=== PATIENT | female | born 1985 | race African-American/Black ===

== ENCOUNTER 2017-01-26 08:21 | Emergency (ER) | payer OTHER ==
[~2017-01-26] VITALS: Ht 182.9 cm; Wt 140.2 kg
[~2017-01-26 08:21] MED LIST: LISI-515 PO
[2017-01-26 08:27] VITALS: BP 207/134; PULSE 84; RESP 16; TEMP 98.3; O2SAT 100
[2017-01-26] MEDS ORDERED: LISI40TA PO (08:35)
[2017-01-26] MEDS ORDERED: amLODIPine BESYLATE 5 MG TAB PO ONE (09:00)
[2017-01-26] MEDS ORDERED: KETOROLAC TROMETHAMINE 60 MG/2 ML (IM) VIAL IM ONE (09:00)
--- NOTE | 2017-01-26 09:22 | PD ---
HPI Chief Complaint: Musculoskeletal Complaint Time Seen by Provider: 08:43 Travel History International Travel<30 days: No Contact w/Intl Traveler<30days: No Traveled to known affect area: No History of Present Illness HPI This is a 31-year-old female who has a history of hypertension who presents to the emergency department with 4 days of pain in her left shoulder, constant, worse with movement, improved with rest. She denies any numbness or weakness. She says over the weekend she was seen on monkey bars and thinks she may pulled something and then subsequently helped her sister paint her house. Following that her shoulder was very painful and she's been having difficulty moving it. She has a history of high blood pressure and takes lisinopril 40 mg every day. She says she took it this morning but she thinks that she probably needs to go back to her doctor because her blood pressures been [id number]. She denies any chest pain or difficulty breathing. PFSH Past Medical History Hypertension: Yes Influenza Vaccination: No ?: Not LMP: 2 WEEKS Past Surgical History Appendectomy: Yes Social History Alcohol Use: Yes (COUPLE TIMES PER MONTH) Tobacco Use: No Substance Use: No Allergies-Medications (Allergen,Severity, Reaction): Coded Allergies: Clonidine (Verified Allergy, Severe, Hives and itchiness, 01/26/17) Reported Meds & Prescriptions Reported Meds & Active Scripts Active Reported Lisinopril 40 Mg Tab 40 Mg PO DAILY Review of Systems Except as stated in HPI: all other systems reviewed are Neg Physical Exam Narrative GENERAL:Well appearing, no acute distress SKIN: Focused skin assessment warm and dry. HEAD: Atraumatic. Normocephalic. EYES: Pupils equal and round. No injection or drainage. ENT: Moist mucous membranes NECK: Trachea midline. CARDIOVASCULAR: Regular rate and rhythm. No murmur appreciated. 2+ left radial pulse with normal capillary refill. RESPIRATORY: Clear to auscultation. Breath sounds equal bilaterally. GASTROINTESTINAL: Abdomen soft, non-tender. MUSCULOSKELETAL: Pain with empty can test and external rotation. Tender to palpation along the anterior aspect of the left shoulder. NEUROLOGICAL: Awake and alert. No obvious cranial nerve deficits. Moving all extremities. PSYCHIATRIC: Appropriate mood and affect; insight and judgment normal. Data Data Last Documented VS Vital Signs Date Time Temp Pulse Resp B/P Pulse Ox O2 Delivery O2 Flow Rate FiO2 01/26/17 08:27 98.3 84 16 207/134 100 Orders Ketorolac Inj (Toradol Inj) (01/26/17 09:00) Shoulder, Complete (>2vws) (01/26/17 ) Amlodipine (Norvasc) (01/26/17 09:00) MDM Medical Decision Making Medical Screen Exam Complete: Yes Emergency Medical Condition: Yes Interpretation(s) afebrile, marked hypertension shoulder xray: no acute fracture or dislocation Differential Diagnosis Rotator cuff sprain, shoulder dislocation, septic arthritis, bursitis Narrative Course This is a 31-year-old female who presents to the emergency department with left shoulder pain following an injury on the monkey bars. She has a normal neurovascular exam. She is quite hypertensive but she says this is chronic for her and she needs to follow up with her primary care physician for medication titration. X-ray of the shoulder was reassuring. She was given a dose of IM Toradol. She was advised to continue anti-inflammatories and follow up with orthopedics as needed for her shoulder. I suspect this is a rotator cuff strain. Patient will be started on amlodipine in addition to her lisinopril and should follow up with her primary care physician within the week regarding her blood pressure. She has no signs or symptoms of hypertensive emergency. Diagnosis Primary Impression: Rotator cuff strain Qualified Code: S46.012A - Rotator cuff strain, left, initial encounter Referrals: Matt Oneill MD Patient Instructions: General Instructions Additional Instructions: If you develop severe chest pain, shortness of breath, sweating, lightheadedness , dizziness or difficulty breathing return to the emergency department immediately. Followup with your primary care physician in 2-3 days if your symptoms are not resolved. Med/Other Pt SpecificInfo: Prescription(s) given Scripts Amlodipine 5 Mg Tab5 Mg PO DAILY 10 Days Ref 0 Prov:Mckayla Colindres MD 01/26/17 Meloxicam 7.5 Mg Tab7.5 Mg PO DAILY #10 TAB Ref 0 Prov:Mckayla Colindres MD 01/26/17 Disposition: 01 DISCHARGE HOME Condition: Stable Mckayla Colindres MD January 26, 2017 09:22
[2017-01-26] MEDS ORDERED: AMLO5TAB2 PO (09:35)
[2017-01-26] MEDS ORDERED: MELO7.5T4 PO (09:35)
[2017-01-26 09:39] VITALS: BP 179/107; PULSE 95; RESP 20; O2SAT 95
--- NOTE | 2017-01-26 10:55 | RADHPO ---
EXAM DATE/TIME: 01/26/2017 09:14 [facility] COMPARISON: No previous studies available for comparison. INDICATIONS : Left shoulder pain, after playing on monkey bars and painting Tuesday. MEDICAL HISTORY : None. SURGICAL HISTORY : None. ENCOUNTER: Initial ACUITY: 4 - 6 days PAIN SCORE: 10/10 LOCATION: Left shoulder FINDINGS: There is a small faint calcific density projecting adjacent to the humeral head and beneath the level of the coracoid on the Y-view of the shoulder. This may be an area of calcific tendinitis. A calcifi c joint body would be an additional consideration. There is no evidence of fracture, dislocation or b harshad destruction. The adjacent clavicle and ribs appear intact. CONCLUSION: Small periarticular calcification as above. No acute bony injury Srinivasa Yancey MD on January 26, 2017 at 10:51 Board Certified Radiologist. This report was verified electronically.
[2017-02-08] MEDS ORDERED: AMLO10TA2 PO (16:28)
[2017-03-09] MEDS ORDERED: AMLO10TA2 PO (12:10)
[2017-03-21] MEDS ORDERED: FLUC150T PO (10:42)
== END 2017-01-26 09:45 | disposition home or self-care (01) ==
LOC: PHEFT 08:21
DX: S46.012A Strain of muscle(s) and tendon(s) of the rotator cuff of left shoulder, initial encounter (principal); I10 Essential (primary) hypertension
CPT/HCPCS: 73030; 96372; 99283; J1885